=== PATIENT | female | born 1975 | race African-American/Black ===

== ENCOUNTER 2019-06-15 15:05 | Emergency (ER) | payer OTHER ==
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
[2019-06-15 15:30] VITALS: BP 118/98; PULSE 93; TEMP 98.3; BMI 18.9
[2019-06-15 16:09] LABS: BASO % 0.7 % (0-2.0); HEMATOCRIT 39.6 % (32.4-45.2); HEMOGLOBIN 13.2 GM/dL (10.7-15.3); LYMPH % 32.9 % (8-40); MCH 30.6 pg (25.7-33.7); MCHC 33.4 g/dl (32.0-36.0); MEAN CELL VOLUME 91.8 fl (80-96); MEAN PLT VOLUME 8.4 fl (7.5-11.1); MONO % 4.3 % (3.8-10.2); NEUT % 61.1 % (42.8-82.8); PLATELET COUNT 288 K/MM3 (134-434); RBC 4.31 M/mm3 (3.60-5.2); RDW 14.4 % (11.6-15.6); WHITE BLOOD COUNT 5.1 K/mm3 (4.0-10.0)
[2019-06-15 16:39] LABS: BILIRUBIN,TOTAL 0.4 mg/dL (0.2-1); BLOOD UREA NITROGEN 9.4 mg/dL (7-18); CALCIUM 9.5 mg/dL (8.5-10.1); CREATININE 0.9 mg/dL (0.55-1.3); PHOSPHOROUS 2.8 mg/dL (2.5-4.9); POTASSIUM 4.1 mmol/L (3.5-5.1); TOT PROT 7.8 g/dl (6.4-8.2); URIC ACID 3.1 mg/dL (2.6-7.2)
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
== END 2019-06-15 17:55 | disposition home or self-care (01) ==
LOC: JERFT 15:05
DX: Z77.21 Contact with and (suspected) exposure to potentially hazardous body fluids (principal)
CPT/HCPCS: 36415; 80053; 82465; 82977; 83615; 84100; 84478; 84550; 85025; 86317; 86704; 86706; 86803; 87340; 87389; 99283-25

== ENCOUNTER 2023-05-15 15:23 | Emergency (ER) | payer OTHER ==
[2023-05-15 15:33] VITALS: BP 132/85; PULSE 106; RESP 18; TEMP 98.8; BMI 24.7
== END 2023-05-15 17:40 | disposition home or self-care (01) ==
LOC: JERFT 15:23
DX: K08.89 Other specified disorders of teeth and supporting structures (principal); K04.7 Periapical abscess without sinus
CPT/HCPCS: 99283-25